=== PATIENT | male | born 1950 | race Two or more races ===

== ENCOUNTER 2018-08-13 13:52 | Inpatient (IN) | payer OTHER ==
[~2018-08-13] VITALS: Ht 185.4 cm; Wt 92.8 kg
[2018-08-13 14:13] VITALS: Ht 185.4 cm; Wt 92.8 kg
[2018-08-13 15:25] LABS: BASOPHIL % 0.9 % (0-2); PLATELET COUNT 241 x10^3mcL (130-400); RED CELL DISTRIBUTION WIDTH 14.5 % (11.5-14.5)
[2018-08-13 15:33] LABS: CALCIUM 9.2 mg/dL (8.5-10.1); CARBON DIOXIDE 26.7 mmol/L (21-32); CREATININE SERUM 1.9 mg/dL (0.7-1.3); POTASSIUM SERUM 4.7 mmol/L (3.5-5.1)
[2018-08-13 15:37] LABS: BILIRUBIN TOTAL 0.3 mg/dL (0.20-1.00); TOTAL PROTEIN, SERUM 7.1 g/dL (6.4-8.2)
[2018-08-13 15:46] LABS: ALBUMIN 3.3 g/dL (3.4-5.0)
[2018-08-13] MEDS ORDERED: FERROUS SULFAT325 M2 PO (16:25)
[2018-08-13] MEDS ORDERED: LANTUS SOLOS100 U/M1 SQ (16:25)
[2018-08-13] MEDS ORDERED: PIOGLITAZONE HY PO (16:26)
[2018-08-13] MEDS ORDERED: ISOSORBIDE DINIT5 M2 PO (16:26)
[2018-08-13] MEDS ORDERED: D3-50001 TAB PO (16:26)
[2018-08-13] MEDS ORDERED: CATAPRES0.1 MG PO (16:27)
[2018-08-13] MEDS ORDERED: COUMADIN5 MG PO ×2 (16:27→16:28)
[2018-08-13] MEDS ORDERED: ENALAPRIL MALE2.5 MG PO (16:27)
[2018-08-13] MEDS ORDERED: DIGOXIN0.25 M1 PO (16:29)
[2018-08-13] MEDS ORDERED: CARVEDILOL12.5 M1 PO (16:29)
[2018-08-13] MEDS ORDERED: METFORMIN HYDR500 M1 PO (16:29)
[2018-08-13] MEDS ORDERED: ZETIA10 M1 PO (16:30)
[2018-08-13] MEDS ORDERED: TAMSULOSIN HYD0.4 M1 PO (16:30)
[2018-08-13] MEDS ORDERED: PAROXETINE20 M1 PO (16:30)
[2018-08-13 16:56] LABS: MAGNESIUM 1.9 mg/dL (1.8-2.4); PHOSPHOROUS 3.8 mg/dL (2.5-4.9)
[2018-08-13 17:18] LABS: CHOLESTEROL/HDL RATIO 5.8
[2018-08-13 17:29] VITALS: BP 145/44
[2018-08-13 18:50] LABS: microscopic required? NO
[2018-08-13 18:57] LABS: UA SPECIFIC GRAVITY 1.015 (1.005-1.035); urine erythrocyte NEGATIVE (NEGATIVE)
[2018-08-13 19:15] VITALS: BP 149/67
[2018-08-14 05:05] VITALS: BP 135/64
[2018-08-14 06:51] LABS: CALCIUM 8.9 mg/dL (8.5-10.1); CARBON DIOXIDE 25.2 mmol/L (21-32); CREATININE SERUM 1.6 mg/dL (0.7-1.3); MAGNESIUM 1.8 mg/dL (1.8-2.4); PHOSPHOROUS 4.1 mg/dL (2.5-4.9); POTASSIUM SERUM 4.6 mmol/L (3.5-5.1)
[2018-08-14 06:57] LABS: IRON 37 ug/dL (65-170)
[2018-08-14 07:01] LABS: TOTAL IRON BINDING CAPACITY 219 ug/dL (250-450)
[2018-08-14 07:27] LABS: PLATELET COUNT 232 x10^3mcL (130-400); RED CELL DISTRIBUTION WIDTH 14.3 % (11.5-14.5)
[2018-08-14 09:34] VITALS: BP 165/76
[2018-08-14 14:26] VITALS: BP 119/59
[2018-08-14 15:36] VITALS: BP 119/59
== END 2018-08-14 16:48 | disposition home or self-care (01) | DRG 469 ==
LOC: ED 13:52 → DU 16:13
PROVIDERS: Emergency Medicine; General Practice
DX: N17.0 Acute kidney failure with tubular necrosis (principal); E11.65 Type 2 diabetes mellitus with hyperglycemia; I48.91 Unspecified atrial fibrillation; E86.0 Dehydration; E87.1 Hypo-osmolality and hyponatremia; E44.1 Mild protein-calorie malnutrition; D64.9 Anemia, unspecified; N40.0 Benign prostatic hyperplasia without lower urinary tract symptoms; E78.5 Hyperlipidemia, unspecified; I25.2 Old myocardial infarction; Z68.29 Body mass index [BMI] 29.0-29.9, adult; Z87.891 Personal history of nicotine dependence; Z79.01 Long term (current) use of anticoagulants; Z79.4 Long term (current) use of insulin; Z79.899 Other long term (current) drug therapy; Z83.3 Family history of diabetes mellitus
CPT/HCPCS: 82962; 83880; J7030; Q0092